=== PATIENT | female | born 1995 | race Two or more races ===

== ENCOUNTER → 2018-11-24 | Outpatient (CLI) | payer OTHER ==
--- NOTE | 2018-11-24 12:12 | REP ---
Clinical: Anatomical evaluation. Comparison: None . Findings: Examination demonstrates a single live intrauterine in variable presentation. motion is identified by technologist. Placenta is noted posterior fundal and grade zero without evidence for placenta previa or abruption. Amniotic fluid volume is normal. Cervix measures 3.4 cm in length and appears closed. No evidence for nuchal cord. Gestational age by current measurements 19 weeks 0 days with AN 04/20/2019 . FHR equals 126 beats per minute. BPD 4.6 cm 19 weeks 5 days HC 15.6 cm 18 weeks 4 days AC 14.0 cm 19 weeks 3 days FL 3.0 cm 19 weeks 1 day HL 2.7 cm 18 weeks 5 days HC/AC ratio 1.12 Estimated weight 279 grams ( 54th percentile). Anatomical assessment demonstrates normal structures including cranium, choroid plexus, cavum, cerebellum/posterior fossa, facial features, lungs, four-chamber heart/ventricular outflow tracts, diaphragm, stomach, cord insertion/three-vessel cord, kidneys/bladder, spine, and extremities. Impression: Single live intrauterine in variable presentation. Anatomical assessment is complete and normal. Electronically Signed by Good Lemus MD 11/24/2018 12:03 P
== END ==
LOC: M RAD 10:56
PROVIDERS: ATTEND Specialist
DX: Z34.82 Encounter for supervision of other normal pregnancy, second trimester (principal); Z36.89 Encounter for other specified antenatal screening; Z3A.19 19 weeks gestation of pregnancy

== ENCOUNTER → 2019-01-25 | Outpatient (CLI) | payer OTHER ==
[2019-01-25 12:26] LABS: ALBUMIN 2.9 GM/DL (3.2-5.2); ALT/SGPT 12 U/L (12-78); BILIRUBIN,DIRECT < 0.1 MG/DL (0.0-0.2); BILIRUBIN,TOTAL 0.3 MG/DL (0.2-1.0); TOTAL PROTEIN 6.4 GM/DL (6.4-8.2)
== END ==
LOC: M SMT 09:08
PROVIDERS: ATTEND Advanced Practice Midwife
DX: R21 Rash and other nonspecific skin eruption (principal)

== ENCOUNTER → 2019-01-31 | Outpatient (CLI) | payer OTHER ==
[2019-01-31 18:33] LABS: BASO # 0.1 10^3/uL (0.0-0.2); BASO % 0.4 % (0.0-1.0); EOS # 0.1 10^3/uL (0.0-0.50); EOS % 0.6 % (0.0-3.0); HEMATOCRIT 33.3 % (36.0-47.0); HEMOGLOBIN 10.8 g/dl (12.0-15.5); LYMPH # 1.6 10^3/uL (1.5-6.5); LYMPH % 12.5 % (24.0-44.0); MEAN CORPUSCULAR HGB CONC 32.4 g/dl (32.0-36.5); MEAN CORPUSCULAR VOLUME 98.5 fl (80.0-96.0); MONO # 0.7 10^3/uL (0.0-0.8); MONO % 5.6 % (0.0-5.0); NEUTROPHILS # 9.9 10^3/uL (1.8-7.7); PLATELET COUNT, AUTOMATED 242 10^3/uL (150-450); RED BLOOD COUNT 3.38 10^6/uL (4.00-5.40); WHITE BLOOD COUNT 12.5 10^3/uL (4.0-10.0)
== END ==
LOC: M SMT 13:20
PROVIDERS: ATTEND Specialist
DX: Z34.02 Encounter for supervision of normal first pregnancy, second trimester (principal)

== ENCOUNTER → 2019-03-29 | Outpatient (REF) | payer OTHER | LOC: M LAB REF 13:14 | PROVIDERS: ATTEND Advanced Practice Midwife | DX: Z36.85 Encounter for antenatal screening for Streptococcus B (principal) ==

== ENCOUNTER → 2019-04-05 | Outpatient (CLI) | payer OTHER ==
[~2019-04-05] MED LIST: CVS27TAB2 PO; PREN29TA4 PO; PRIL20TA2 PO
== END ==
LOC: M SMT 15:05
PROVIDERS: ATTEND Advanced Practice Midwife
DX: Z34.83 Encounter for supervision of other normal pregnancy, third trimester (principal); Z3A.00 Weeks of gestation of pregnancy not specified

== ENCOUNTER 2019-04-13 12:50 | Outpatient (CLI) | payer OTHER ==
[~2019-04-13] VITALS: Ht 152.4 cm; Wt 80.2 kg
[2019-04-13] MEDS ORDERED: CVS27TAB2 PO (13:16)
[2019-04-13] MEDS ORDERED: PREN29TA4 PO (13:16)
[2019-04-13] MEDS ORDERED: PRIL20TA2 PO (13:16)
== END 2019-04-13 13:48 | disposition home or self-care (01) ==
LOC: M LDO 12:50
PROVIDERS: ATTEND Obstetrics & Gynecology
DX: O47.1 False labor at or after 37 completed weeks of gestation (principal); Z3A.38 38 weeks gestation of pregnancy

== ENCOUNTER 2019-04-20 13:08 | Inpatient (IN) | payer OTHER ==
[~2019-04-20] VITALS: Ht 157.5 cm; Wt 80.2 kg
[2019-04-20 13:32] VITALS: BP 106/65
[2019-04-20] MEDS ORDERED: AMPICILLIN SOD 1 GM in D5W 50 ML IV SCH (14:00)
[2019-04-20] MEDS ORDERED: AMPICILLIN SOD 2 GM in D5W MINI-BAG PLUS 100 ML IV ONE (14:00)
[2019-04-20 14:24] VITALS: BP 103/66
[2019-04-20] MEDS ORDERED: LR 1,000 ML IV SCH (15:10)
[2019-04-20] MEDS ORDERED: PENICILLIN G POTASSIUM IV 5 MU in D5W MINI-BAG PLUS 100 ML IV STA (15:10)
[2019-04-20] MEDS ORDERED: LACTATED RINGER'S 1000 ML IV STA (15:10)
[2019-04-20 15:23] VITALS: BP 122/74
[2019-04-20 16:11] LABS: BASO % 0.4 % (0.0-1.0); EOS # 0.1 10^3/uL (0.0-0.5); EOS % 0.8 % (0.0-3.0); HEMATOCRIT 38.3 % (36.0-47.0); HEMOGLOBIN 13.2 g/dl (12.0-15.5); LYMPH # 1.9 10^3/uL (1.5-5.0); LYMPH % 17.3 % (24.0-44.0); MEAN CORPUSCULAR HEMOGLOBIN 32.8 pg (27.0-33.0); MEAN CORPUSCULAR HGB CONC 34.5 g/dl (32.0-36.5); MONO # 0.8 10^3/uL (0.0-0.8); MONO % 7.1 % (0.0-5.0); NEUTROPHILS # 7.9 10^3/uL (1.5-8.5); NEUTROPHILS % 73.3 % (36.0-66.0); PLATELET COUNT, AUTOMATED 190 10^3/uL (150-450); RED BLOOD COUNT 4.03 10^6/uL (4.00-5.40); WHITE BLOOD COUNT 10.8 10^3/uL (4.0-10.0)
[2019-04-20] MEDS ORDERED: miSOPROStol 50 MCG 1/2 TAB (S0191) PO SCH (17:00)
--- NOTE | 2019-04-20 18:59 | HPE ---
DATE OF ADMISSION: 04/20/2019 Alma Rosa is a 23-year-old female, 1, para 0 with an estimated date of confinement (EDC) of 04/25/2019, estimated gestational age (EGA) 39 weeks gestation. who presented to labor and delivery after experiencing a large gush of fluid with continuous leakage. The patient also reports contractions every 6 minutes. Upon evaluation in labor and delivery, she was found to be grossly ruptured with fluid pooling down her leg. At this point, a decision was made for admission. Her record reviewed. Blood type was O positive, rubella immune, hepatitis negative, HIV negative, GC/chlamydia negative. One-hour sugar testing was within normal limits. Her GBS is positive. PAST MEDICAL HISTORY: Significant for depression and anxiety. PAST SURGICAL HISTORY: Denies. SOCIAL HISTORY: The patient denies any alcohol or drug use. No cigarette smoking. REVIEW OF SYSTEMS: Unremarkable. FAMILY HISTORY: Significant for thyroid disease. MEDICATIONS: vitamin ALLERGIES: No known drug allergies. PHYSICAL EXAMINATION: Normal-appearing female in no acute distress. Abdomen: Soft, nontender, nondistended. Extremities: No clubbing, cyanosis, or edema. Vaginal exam: Fingertip, thick, and posterior with gross rupture of membrane. Nitrazine positive. Tracing reviewed. Category 1 tracing with contractions every 4-6 minutes. ASSESSMENT: Intrauterine at 39 weeks gestation with gross rupture of membrane and early labor. PLAN: Admit to labor and delivery. Induction process discussed with the patient given that she is grossly ruptured and GBS positive. Decision made to start the patient on penicillin. She will undergo Cytotec induction. Pain management also discussed. The patient up for an epidural. Will continue to monitor. Anticipate delivery.
[2019-04-20 20:04] VITALS: BP 115/55
[2019-04-20] MEDS: LR 1,000 ML IV SCH (20:51)
[2019-04-20] MEDS: PENICILLIN G POTASSIUM IV 2.5 MU in IV 1 EA IV SCH (21:08)
[2019-04-20 22:07] VITALS: BP 114/60
[2019-04-20 23:21] VITALS: BP 126/73
[2019-04-20] MEDS ORDERED: FENTANYL 2MCG/ML ROPIVACAINE 0.2% IN 0.9% NACL 100ML IVBAG As Ordered ONE (23:58)
[2019-04-21] VITALS (60 sets, daily range): BP systolic 85–130; BP diastolic 45–79
[2019-04-21] MEDS: LR 1,000 ML IV SCH ×3 (00:10→06:42)
[2019-04-21] MEDS ORDERED: OXYTOCIN DRIP 30 UNITS in IV 1 EA IV SCH ×2 (00:15→13:00)
[2019-04-21] MEDS: PENICILLIN G POTASSIUM IV 2.5 MU in IV 1 EA IV SCH ×3 (01:08→09:07)
[2019-04-21] MEDS ORDERED: ePHEDrine SULFATE 25 MG/5 ML(5MG/ML) SYRINGE As Ordered ONE (01:36)
[2019-04-21] MEDS: ePHEDrine SULFATE 25 MG/5 ML(5MG/ML) SYRINGE IV PRN ×3 (01:40→04:06)
[2019-04-21] MEDS ORDERED: ONDANSETRON 4MG/2ML VIAL (J2405) IV PRN ×3 (01:45→13:45)
[2019-04-21] MEDS ORDERED: EPIDURAL/PCA KEYS XX PRN (01:45)
[2019-04-21] MEDS ORDERED: REFRIGERATOR IV KEYS XX PRN (01:45)
[2019-04-21] MEDS ORDERED: EPIDURAL COMMENT XX SCH (01:45)
[2019-04-21] MEDS ORDERED: FENTANYL/ROPIVACAINE/NACL BAG 100 ML EPIDURAL SCH (01:45)
[2019-04-21] MEDS ORDERED: NALOXONE INJ 0.4 MG/1 ML VIAL (J2310) IV PRN ×3 (01:45→13:15)
[2019-04-21] MEDS ORDERED: diphenhydrAMINE INJ 50MG/ML VIAL (J1200) IV PRN ×2 (01:45→13:15)
--- NOTE | 2019-04-21 08:22 | IPNPDOC ---
Text Note Date of Service The patient was seen on 04/21/19. NOTE Feeling pressure Pitocin @ 4mu UC 2-4 minutes x 60 seconds, moderate FH 150, Cat I with intermittent Cat II Afebrile SVE 8-9/100/-1-0 Reposition, observe VS,Fishbone, I+O VS, Fishbone, I+O Laboratory Tests 04/20/19 16:01 Vital Signs Date Time Temp Pulse Resp B/P (MAP) Pulse Ox O2 Delivery O2 Flow Rate FiO2 04/21/19 06:57 99.0 114 18 127/66 (86) 04/20/19 13:32 99 Room Air I&O- Last 24 Hours up to 6 AM 04/21/19 06:00 Intake Total 3790 ml Output Total 1075 ml Balance 2715 ml Lavonne Landry CNM Apr 21, 2019 08:22
--- NOTE | 2019-04-21 10:36 | IPNPDOC ---
Text Note Date of Service The patient was seen on 04/21/19. NOTE Reports feeling pressure Pitocin @ 4mu UC 2-4 minutes x 60 seconds FH 155-160, Cat I, + accels Cervix 8-9/0, well applied now Updated Dr Peres. Will reassess in 2 hrs. VS,Fishbone, I+O VS, Fishbone, I+O Laboratory Tests 04/20/19 16:01 Vital Signs Date Time Temp Pulse Resp B/P (MAP) Pulse Ox O2 Delivery O2 Flow Rate FiO2 04/21/19 09:57 100 125/73 (90) 04/21/19 08:27 18 04/21/19 06:57 99.0 04/20/19 13:32 99 Room Air I&O- Last 24 Hours up to 6 AM 04/21/19 06:00 Intake Total 3790 ml Output Total 1075 ml Balance 2715 ml Lavonne Landry CNM Apr 21, 2019 10:36
[2019-04-21] MEDS ORDERED: LACTATED RINGER'S 1000 ML IV STA (11:44)
[2019-04-21] MEDS ORDERED: ceFAZolin SOD 2 GM in IV 1 EA IV ONE (11:45)
[2019-04-21] MEDS ORDERED: BICITRA 30ML SOLN UDC PO ONE (11:45)
[2019-04-21] MEDS ORDERED: AZITHROMYCIN INJ 500 MG, VIAL MATE ADAPTER 1 EACH in D5W 250 ML IV ONE (11:45)
--- NOTE | 2019-04-21 11:47 | IPNPDOC ---
Text Note Date of Service The patient was seen on 04/21/19. NOTE No cervical change since 0700 Discussed with patient and family. Rec C/S at this time Pt and family agree Dr Peres notified. Pitocin off. VS,Fishbone, I+O VS, Fishbone, I+O Laboratory Tests 04/20/19 16:01 Vital Signs Date Time Temp Pulse Resp B/P (MAP) Pulse Ox O2 Delivery O2 Flow Rate FiO2 04/21/19 09:57 100 125/73 (90) 04/21/19 08:27 18 04/21/19 06:57 99.0 04/20/19 13:32 99 Room Air I&O- Last 24 Hours up to 6 AM 04/21/19 06:00 Intake Total 3790 ml Output Total 1075 ml Balance 2715 ml Lavonne Landry CNM Apr 21, 2019 11:46
[2019-04-21] MEDS ORDERED: OXYTOCIN INJ 10 UNITS/ML VIAL (J2590) As Ordered ONE ×2 (12:25→12:48)
[2019-04-21] MEDS ORDERED: EPINEPHrine INJ 1 MG/ML 1ML AMP As Ordered ONE (12:27)
[2019-04-21] MEDS ORDERED: LIDOCAINE PRES-FREE 2% 10ML AMP As Ordered ONE (12:28)
[2019-04-21] MEDS ORDERED: MORPHINE PRES-FREE INJ 10 MG/10 ML VIAL (J2274) As Ordered ONE (12:29)
[2019-04-21] MEDS ORDERED: dexameTHASONE 4 MG/ML 1ML VIAL (J1100) As Ordered ONE (12:29)
[2019-04-21] MEDS ORDERED: PERCOCET 5MG/325MG TAB PO PRN (12:30)
[2019-04-21] MEDS ORDERED: RHOGAM 300 MCG (1500 IU) INJ (J2790) IM SCH (12:30)
[2019-04-21] MEDS ORDERED: MOM 30ML SUSPENSION UDC PO PRN (12:30)
[2019-04-21] MEDS ORDERED: MEASLES,MUMPS,RUBELLA VACCINE INJ (MMR-II) (90707) SC SCH (12:30)
[2019-04-21] MEDS ORDERED: ONDANSETRON 4MG/2ML VIAL (J2405) As Ordered ONE (12:56)
[2019-04-21] MEDS ORDERED: PHENYLephrine HCL 500 MCG/5 ML (100MCG/ML) SYRINGE (J2370) As Ordered ONE (13:00)
[2019-04-21 13:14] LABS: CORD GAS ABE A -10.4; CORD GAS HCO3 A 20.5 MEQ/L; CORD GAS O2 SAT A 22.6 %; CORD GAS PCO2 A 68.3 mmHg; CORD GAS PH A 7.095 UNITS; CORD GAS PO2 A 17.9 mmHg; CORD GAS SBC A 14.9 MEQ/L; CORD GAS TCO2 A 22.6 MEQ/L
[2019-04-21] MEDS ORDERED: NALBUPHINE HCL 10 MG/ML AMP (J2300) IV PRN ×2 (13:15→13:45)
[2019-04-21] MEDS ORDERED: METOCLOPRAMIDE INJ 10MG/2ML VIAL (J2765) IV PRN (13:15)
[2019-04-21 13:17] LABS: CORD GAS ABE V -4.8; CORD GAS O2 SAT V 34.3 %; CORD GAS PCO2 V 53.5 mmHg; CORD GAS PH V 7.251 UNITS; CORD GAS PO2 V 18.3 mmHg; CORD GAS SBC V 19.1 MEQ/L; CORD GAS TCO2 V 24.6 MEQ/L
[2019-04-21] MEDS ORDERED: KETOROLAC 30 MG/ML VIAL (J1885) IV PRN (13:45)
[2019-04-21] MEDS ORDERED: fentaNYL 100 MCG/2 ML INJECTION (J3010) IV PRN (13:45)
[2019-04-21] MEDS ORDERED: KETOROLAC 30 MG/ML VIAL (J1885) As Ordered ONE (13:52)
[2019-04-21] MEDS ORDERED: diphenhydrAMINE INJ 50MG/ML VIAL (J1200) IV STA (14:17)
[2019-04-21] MEDS ORDERED: OXYTOCIN 30 UNITS IN 0.9% NaCl 500ML IV BAG (J2590) As Ordered ONE (14:30)
[2019-04-21] MEDS: DOCUSATE SODIUM 100 MG CAP PO SCH (21:00)
--- NOTE | 2019-04-21 22:18 | RO ---
DATE OF PROCEDURE: 04/21/2019 Flor is a 23-year-old female who is admitted at 39 weeks gestation with spontaneous rupture of membranes. She underwent Cytotec followed by Pitocin induction. Progressed to approximately 9 cm and had arrest of dilatation for over 3 hours. At this point she was counseled and decision was made to proceed with a primary section. PREOPERATIVE DIAGNOSES: 1. Term with spontaneous rupture of membrane. 2. Arrest of dilatation at 9 cm. POSTOPERATIVE DIAGNOSIS: 1. Term with spontaneous rupture of membrane. 2. Arrest of dilatation at 9 cm. PROCEDURE: Primary low transverse section. SURGEON: Avelino Peres DO [employer] CONSULTANT: Dr. Holland ANESTHESIA: Epidural. COMPLICATIONS: None. ESTIMATED BLOOD LOSS: 500 mL. FINDINGS: Live in occiput transverse position. scores 8 and 9. weight 8 pounds 14 ounces. Normal appearing tubes and ovaries. DESCRIPTION OF PROCEDURE: After obtaining informed consent, the patient was taken to the operating room where epidural anesthetic was found to be adequate. She was then draped and prepped in the usual sterile fashion in the supine position. With the help of Dr. Holland, a Pfannenstiel incision was made. This was carried down to the fascia. Fascia was opened up in a midline fashion and carried through laterally. Superior aspect of the fascia was then grasped with two Marco clamps, tented off and dissected off the rectus muscles sharply. The inferior aspect was dissected off in a similar fashion. Peritoneum identified. Peritoneal cavity entered bluntly. At this point, a Mobius skin retractor was placed, a low transverse uterine incision was made. was delivered in an atraumatic fashion. Nose and mouth bulb suctioned. Cord doubly clamped and cut and was handed over to the waiting warmer. Cord blood and cord gas was sent. Placenta removed manually. Uterus cleared of all clot and debris, and the uterine incision was then repaired in two separate layers of #0 Vicryl sutures. All superficial bleeders were coagulated. Pelvis copiously irrigated with normal saline. Attention turned to the peritoneum which was closed in a running fashion using #2-0 Vicryl. Fascia closed in two separate segment of #0 Vicryl sutures. The skin was then reapproximated in a subcuticular fashion using #3-0 Vicryl. Steri-Strips placed. The patient tolerated the procedure well. She was then transferred to recovery room in stable condition.
[2019-04-21] MEDS: IBUPROFEN 800 MG TAB PO SCH (22:30)
[2019-04-22 02:00] VITALS: BP 105/53
[2019-04-22] MEDS: IBUPROFEN 800 MG TAB PO SCH ×3 (05:33→22:06)
[2019-04-22 06:00] VITALS: BP 97/54
[2019-04-22 06:52] LABS: HEMATOCRIT 31.4 % (36.0-47.0); MEAN CORPUSCULAR HEMOGLOBIN 32.2 pg (27.0-33.0); MEAN CORPUSCULAR HGB CONC 32.8 g/dl (32.0-36.5); MEAN CORPUSCULAR VOLUME 98.1 fl (80.0-96.0); PLATELET COUNT, AUTOMATED 144 10^3/uL (150-450); WHITE BLOOD COUNT 14.5 10^3/uL (4.0-10.0)
[2019-04-22 07:10] LABS: HEMOGLOBIN 10.3 g/dl (12.0-15.5)
[2019-04-22] MEDS: PRENATAL VITAMINS CHEWABLE TABLET PO SCH (08:02)
[2019-04-22] MEDS: DOCUSATE SODIUM 100 MG CAP PO SCH ×2 (08:02→20:38)
[2019-04-22] MEDS: PERCOCET 5MG/325MG TAB PO PRN ×2 (11:59→20:38)
[2019-04-22 18:32] VITALS: BP 97/56
[2019-04-22 22:00] VITALS: BP 105/57
[2019-04-23 02:00] VITALS: BP 100/52
[2019-04-23 05:31] VITALS: BP 104/55
[2019-04-23] MEDS: IBUPROFEN 800 MG TAB PO SCH ×2 (05:54→13:57)
[2019-04-23] MEDS: PRENATAL VITAMINS CHEWABLE TABLET PO SCH (08:11)
[2019-04-23] MEDS: DOCUSATE SODIUM 100 MG CAP PO SCH (08:11)
[2019-04-23] MEDS: PERCOCET 5MG/325MG TAB PO PRN (08:12)
[2019-04-23] MEDS ORDERED: OXYC1TAB23 PO (10:13)
[2019-04-23] MEDS ORDERED: IBUP-1022 PO (10:14)
[2019-04-23 11:02] VITALS: BP 121/70
--- NOTE | 2019-04-24 10:44 | DSES ---
DATE OF ADMISSION: 04/20/2019 DATE OF DISCHARGE: 04/23/2019 HISTORY: A 23-year-old, female, at 39 weeks' gestation presents with gush of fluid per vagina. She was found to have spontaneous rupture of membranes. She was admitted in early labor. She had no complications. HOSPITAL COURSE: The patient was admitted on 04/20/2019. She made slow progress in labor. Diagnosis of arrest of dilation at 8-9 cm. The decision was made to proceed with a section. On 04/21/2019, she underwent primary low transverse section for an 8 pound 14 ounce infant in occiput transverse position by Dr. Avelino Peres. The procedure was without complication. Her postoperative course was unremarkable. She had adequate return of bladder and bowel function. Her postoperative hemoglobin was 10.3 g/dL. She was deemed stable for discharge on postoperative day #2. ADMISSION DIAGNOSES: term, ruptured membranes. DISCHARGE DIAGNOSIS: Delivered. PROCEDURE: Primary section. DISPOSITION: The patient will followup with Dr. Palumbo in 2 weeks. Instructions were reviewed.
== END 2019-04-23 17:20 | disposition home or self-care (01) | DRG 540 ==
LOC: M LDO 13:08 → M LDI 15:11 → M OBS 04-21 15:27
PROVIDERS: ADMIT Obstetrics & Gynecology; ATTEND Obstetrics & Gynecology
PROC: 10D00Z1 Extraction of Products of Conception, Low, Open Approach (ICD-10-PCS; principal; 2019-04-21 12:45)
DX: O99.824 Streptococcus B carrier state complicating childbirth (principal); Z3A.39 39 weeks gestation of pregnancy; O62.0 Primary inadequate contractions; Z37.0 Single live birth

== ENCOUNTER → 2025-04-26 | Outpatient (CLI) | payer OTHER ==
[~2025-04-26] MED LIST changes: +IBUP600T42 PO; +OXYC1TAB23 PO
[2025-04-26 15:43] LABS: PLATELET COUNT, AUTOMATED 283 10^3/uL (150-450)
[2025-04-26 16:42] LABS: HIV 1&2 SCREEN NEGATIVE (NEGATIVE)
[2025-04-26 16:49] LABS: HEPATITIS C VIRUS ABY INDEX < 0.02 INDEX (<0.8)
[2025-04-26 16:52] LABS: Trichomonas vaginalis (AMP) NOT DETECTED (NEGATIVE)
[2025-04-26 17:16] LABS: GC DNA AMPLIFICATION NEGATIVE (NEGATIVE)
== END ==
LOC: M PLALAB 13:23
PROVIDERS: ATTEND Specialist
DX: Z34.81 Encounter for supervision of other normal pregnancy, first trimester (principal)

== ENCOUNTER → 2025-06-04 | Outpatient (CLI) | payer OTHER | LOC: M WHC 10:12 | PROVIDERS: ATTEND Specialist | DX: Z34.82 Encounter for supervision of other normal pregnancy, second trimester (principal) ==